=== PATIENT | female | born 2000 | race Caucasian/White ===

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

== ENCOUNTER 2023-01-19 13:34 | Inpatient (IN) | payer OTHER ==
[2023-01-19] MEDS ORDERED: CARBOPROST TROMETHAMINE 250 MCG/ML 1 ML AMP IM PRN (14:25)
[2023-01-19] MEDS ORDERED: miSOPROStoL 200 MCG TAB PO PRN (14:25)
[2023-01-19] MEDS ORDERED: LIDOCAINE 0.5% (PF) 5 MG/ML (50 ML SDV) SQ PRN (14:25)
[2023-01-19] MEDS ORDERED: OXYTOCIN 10 UNIT/ML 1 ML VIAL IM PRN (14:25)
[2023-01-19] MEDS ORDERED: TRANEXAMIC 1,000 MG/100ML-NACL 1,000 MG in EMPTY BAG 1 BAG IV PRN (14:25)
[2023-01-19] MEDS ORDERED: METHYLERGONOVINE 0.2 MG/ML 1 ML AMP IM PRN (14:25)
[2023-01-19] MEDS ORDERED: TERBUTALINE 1 MG/ML VIAL SQ PRN (14:25)
[2023-01-19] MEDS ORDERED: BENZOCAINE/MENTHOL SPRAY 1 GM/SPRAY AEROSOL TOPICAL PRN (14:26)
[2023-01-19] MEDS ORDERED: HYDROCORTISONE 2.5% RECTAL CREAM 30 GM TUBE RECTAL PRN (14:26)
[2023-01-19] MEDS ORDERED: diphenhydrAMINE 50 MG/ML 1 ML VIAL IVP PRN ×2 (14:26)
[2023-01-19] MEDS ORDERED: ACETAMINOPHEN TAB 325 MG TAB PO PRN (14:26)
[2023-01-19] MEDS ORDERED: SIMETHICONE 80 MG CHEWABLE PO PRN (14:26)
[2023-01-19] MEDS ORDERED: diphenhydrAMINE 25 MG CAP PO PRN (14:26)
[2023-01-19] MEDS ORDERED: ZOLPIDEM 5 MG TAB PO PRN (14:26)
[2023-01-19] MEDS ORDERED: LANOLIN CREAM 5 GM TUBE TOPICAL PRN (14:26)
[2023-01-19] MEDS ORDERED: diphenhydrAMINE 50 MG CAP PO PRN (14:26)
[2023-01-19] MEDS ORDERED: LACTATED RINGERS 1,000 ML IV SCH (14:30)
[2023-01-19] MEDS: IBUPROFEN 600 MG TAB PO PRN ×2 (14:54→23:59)
[2023-01-19] MEDS ORDERED: OXYTOCIN 30 UNITS/500 ML NS 30 UNIT in SALINE 1 500ML.BAG IV SCH (15:00)
[2023-01-19 16:23] LABS: Amphetamine Screen,Urine Not Detected (NotDetected); Barbiturate Screen,Urine Not Detected (NotDetected); Benzodiazepines Screen,Urine Not Detected (NotDetected); Cocaine Screen,Urine Not Detected (NotDetected); Methadone Screen, Urine Not Detected (NotDetected); Opiate Screen,Urine Not Detected (NotDetected); Oxycodone Screen, Urine Not Detected (NotDetected); Phencyclidine Screen,Urine Not Detected (NotDetected); Tricyclic Antidepressant,Urine Not Detected (NotDetected); Urn Cannabinoid Scrn Detected (NotDetected)
--- NOTE | 2023-01-19 17:45 | P.HPOB ---
History of Present Illness H&P Date: 01/19/23 Chief Complaint: Contractions, 1 visit Please note this H&P was dictated after delivery. Patient presented to labor and delivery completely dilated and precipitously delivered. Please see separate dictated delivery note. This patient is a 22-year-old 2 para 1 female estimated date of confinement 02/14/2023 estimated gestational age 36-2/7 weeks who presented to labor and delivery with complaints of contractions and is found to be completely dilated on admission. Patient's care is per Dr. Walker. Patient's had 2 visits at 12 and 19 weeks. She's had no other visits due to cortical "transportation issues". care is complicated by positive chlamydial culture that was treated however her partner has never been treated and they have continued to have intercourse throughout the . Patient also has a history of delivery at 36 weeks with her first was referred to maternal- medicine but did not go. is further complicated by marijuana use. Patient now presents in active labor Review of Systems Genitourinary: Reports Menstruation: Reports amenorrhea Past Medical History Additional Past Medical History / Comment(s): fractured wrist; previous delivery at 36-1/2 weeks gestation. History of Any Multi-Drug Resistant Organisms: None Reported Past Surgical History: No Surgical Hx Reported Past Anesthesia/Blood Transfusion Reactions: No Reported Reaction Smoking Status: Vaper - Past Family History Mother Family Medical History: No Reported History Medications and Allergies Allergies Allergy/AdvReac Type Severity Reaction Status Date / Time No Known Allergies Allergy Verified 01/19/23 14:24 Exam Vital Signs Temp Pulse Resp BP Pulse Ox 01/19/23 16:23 97 F L 75 18 130/85 01/19/23 16:15 96.9 F L 73 18 138/77 99 01/19/23 15:53 71 18 133/90 01/19/23 15:23 81 16 131/84 01/19/23 15:08 74 18 135/89 01/19/23 14:53 70 18 139/93 01/19/23 14:38 70 18 140/90 01/19/23 14:23 96.9 F L 73 18 135/84 01/19/23 14:00 96.9 F L 73 18 138/77 99 Intake and Output 01/19/23 01/19/23 01/19/23 06:59 14:59 22:59 Intake Total 172.567 Output Total 100 295 Balance 72.567 -295 Intake: Intake, IV Titration 172.567 Amount Oxytocin 30 Units/500 ml 172.567 Ns 30 unit In Saline 1 500ml.bag @ Per Protocol IV .Q0M [facility] Rx#:[id number] Output: Urine 100 Estimated Blood Loss 100 Output, Quantitative 195 Blood Loss Other: Weight 58.967 kg - OBG Physical Exam Abdomen: bowel sounds normal, no diffuse tenderness, no bruit present, no guarding noted, no hepatomegaly, no splenomegaly, no mass Vulva: both: normal Vagina: normal moisture, no discharge Cervix: no lesion (Cervix is complete and +2 station), no discharge Uterus: enlarged Results Blood type is A positive. Patient has not done a Glucola or group B strep testing. Patient has not done an anatomy ultrasound. Abnormal Lab Results - Last 24 Hours (Table) 01/19/23 Range/Units 15:30 U Marijuana (THC) Screen Detected H (NotDetected) Assessment and Plan Assessment: This is a 22-year-old 2 para 1 female 36-2/7 weeks gestation admitted to labor and delivery in active labor. Patient precipitously delivered a viable male . Please see separate dictated delivery note. Plan is to send a ur ine culture for chlamydia due to history of positive infection and her partner has not been treated. human services worker will also be consulted. Otherwise will continue routine care. (1) 36 weeks gestation of Current Visit: Yes Status: Acute Code(s): Z3A.36 - 36 WEEKS GESTATION OF SNOMED Code(s): 02391194 (2) Active labor Current Visit: Yes Status: Acute Code(s): IWG1417 - SNOMED Code(s): 078923751 (3) Limited care Current Visit: Yes Status: Acute Code(s): O09.30 - SUPRVSN OF PREG W INSUFFICIENT ANTENAT CARE, UNSP TRIMESTER SNOMED Code(s): 783538225 (4) Substance abuse Current Visit: Yes Status: Acute Code(s): F19.10 - OTHER PSYCHOACTIVE SUBSTANCE ABUSE, UNCOMPLICATED SNOMED Code(s): 06848382
--- NOTE | 2023-01-19 17:47 | P.PROBDLV ---
Vaginal Delivery Note - . Vaginal Delivery Note: Normal spontaneous vaginal delivery viable male infant Apgars 9 and 9 delivery time is 1411 hrs. Please see dictated H&P for intimate details of this patient's admission. Brief summary this is a 22-year-old 2 para 1 female 36-2/7 weeks gestation admitted in triage for complaints of contractions found to be completely dilated and pushing. She has a IV placed and is immediately taken to the birthing suite. Limited heart tones are obtained but appeared to be normal. Patient is quite out of control but at this time is encouraged to push. The posterior perineum is supported we have controlled delivery of infant's head over the intact perineum. Mouth and nares are bulb suctioned. There is no evidence of a nuchal cord. Patient continues to push uncontrollably and delivers the anterior and posterior shoulder and rest this infant's body. This is a vigorous viable male infant Apgars are 9 and 9 delivery time is 1411 hrs. has spontaneous respiration and good cry and grossly appears normal. After delivery of the the umbilical cord is doubly clamped and cut. The placenta is then spontaneously delivered intact. Inspection of the perineum shows bilateral periurethral lacerations which did not require suture. Estimated blood loss is approximately 100 mL. There are no complications. All counts are correct 3. Infant and mother stable delivery room however the order fulfillment specialist be alerted to patient's status.
[2023-01-19 18:57] LABS: Basophils % (A) 0 %; Eosinophils # (A) 0.1 k/uL (0-0.7); Eosinophils % (A) 1 %; HCT 38.9 % (34.0-46.0); HGB 12.9 gm/dL (11.4-16.0); Lymphocytes # (A) 1.8 k/uL (1.0-4.8); Lymphocytes % (A) 12 %; MCH 27.5 pg (25.0-35.0); MCHC 33.1 g/dL (31.0-37.0); Mean Platelet Volume 9.5; Monocytes # (A) 0.8 k/uL (0-1.0); Monocytes % (A) 5 %; Neutrophils # (A) 12.4 k/uL (1.3-7.7); Neutrophils % (A) 81 %; Platelet Count 295 k/uL (150-450); RBC 4.68 m/uL (3.80-5.40); RDW 12.9 % (11.5-15.5); WBC 15.3 k/uL (4.0-11.0)
[2023-01-19] MEDS: SENNOSIDES-DOCUSATE SODIUM 1 EACH TAB PO SCH (20:14)
[2023-01-19 21:04] VITALS: RESP 16
[2023-01-20 08:10] LABS: Basophils % (A) 0 %; Eosinophils # (A) 0.1 k/uL (0-0.7); Eosinophils % (A) 1 %; HCT 34.7 % (34.0-46.0); HGB 11.8 gm/dL (11.4-16.0); Lymphocytes # (A) 1.7 k/uL (1.0-4.8); Lymphocytes % (A) 13 %; MCH 28.2 pg (25.0-35.0); Mean Platelet Volume 8.3; Monocytes # (A) 0.7 k/uL (0-1.0); Monocytes % (A) 5 %; Neutrophils # (A) 10.1 k/uL (1.3-7.7); Neutrophils % (A) 80 %; Platelet Count 241 k/uL (150-450); RBC 4.18 m/uL (3.80-5.40); WBC 12.7 k/uL (4.0-11.0)
[2023-01-20 08:13] VITALS: PULSE 58
[2023-01-20] MEDS: IBUPROFEN 600 MG TAB PO PRN ×2 (08:13→13:10)
[2023-01-20] MEDS: SENNOSIDES-DOCUSATE SODIUM 1 EACH TAB PO SCH (08:16)
--- NOTE | 2023-01-20 08:53 | P.PNOBGVD ---
Subjective - Subjective Principal diagnosis: Status post vaginal delivery day #1 Interval history: Patient doing well. Denies any complaints at this time. She is bottle feeding. Lochia has been decreasing. Patient reports: Reports appetite normal, Reports voiding normally, Reports pain well controlled, Reports ambulating normally : other (In level I nursery) Objective - Latest Vital Signs Latest vital signs: Vital Signs Temp Pulse Resp BP Pulse Ox 01/20/23 08:00 98.0 F 58 L 16 135/83 100 01/20/23 04:00 97.8 F 82 16 131/88 100 01/20/23 00:00 79 16 123/83 98 01/19/23 20:00 98.6 F 88 16 138/77 01/19/23 16:23 97 F L 75 18 130/85 01/19/23 16:15 96.9 F L 73 18 138/77 99 01/19/23 15:53 71 18 133/90 01/19/23 15:23 81 16 131/84 01/19/23 15:08 74 18 135/89 01/19/23 14:53 70 18 139/93 01/19/23 14:38 70 18 140/90 01/19/23 14:23 96.9 F L 73 18 135/84 01/19/23 14:00 96.9 F L 73 18 138/77 99 Intake and Output 01/19/23 01/20/23 01/20/23 22:59 06:59 14:59 Output Total 295 Balance -295 Output: Urine 100 Output, Quantitative 195 Blood Loss Other: # Voids 2 - Exam Extremities: Present: normal. Absent: tenderness Abdomen: Present: normal appearance, soft. Absent: distention, tenderness Uterus: Present: normal, firm. Absent: tenderness - Labs Labs: Abnormal Lab Results - Last 24 Hours (Table) 01/19/23 01/19/23 01/20/23 Range/Units 14:00 15:30 07:43 WBC 15.3 H 12.7 H (4.0-11.0) k/uL Neutrophils # 12.4 H 10.1 H (1.3-7.7) k/uL U Marijuana (THC) Screen Detected H (NotDetected) Assessment and Plan Assessment: Status post vaginal delivery day #1 Plan: Continue with care today. Anticipate discharge home tomorrow.
[2023-01-20 13:18] VITALS: BP 126/73; TEMP 98.7
[2023-01-20 14:02] LABS: C. trachomatis,PCR Negative (Negative)
[2023-01-20] MEDS ORDERED: METOCLOPRAMIDE 10 MG TAB PO PRN (16:50)
--- NOTE | 2023-01-23 06:51 | P.MSEPDOC ---
Presenting Problems - Arrival Data Date of Arrival on Unit: 01/19/23 Time of Arrival on Unit: 13:35 Mode of Transport: Wheelchair - Complaint OB-Reason for Admission/Chief Complaint: Rule Out SROM Comment: Pt presents to triage with c/o sharp tightening pelvic pain 8/10 starting at 1000 today and worsening at 1100. States fluid leaking since 1230 today. Medical History - Information : 2 Para: 1 Term: 0 : 1 Abortions: Spontaneous or Elective: 0 Number of Living Children: 1 - Gestational Age Gestational Age by CASSIA (wks/days): 39 Weeks and 1 Days - History Complications: Other Comment: Limited care, history of chlamydia during Review of Systems - Review of Systems Constitutional: No problems Breast: No problems ENT: No problems Cardiovascular: No problems Respiratory: No problems Gastrointestinal: No problems Genitourinary: No problems Musculoskeletal: No problems Neurological: No problems Skin: No problems Vital Signs - Temperature Temperature: 98.7 F Temperature Source: Oral - Pulse Right Pulse Rate: 58 Pulse Assessment Method: Automatic Cuff - Respirations Respiratory Rate: 16 Oxygen Delivery Method: Room Air - Blood Pressure Right Arm Blood Pressure: 126/73 Blood Pressure Mean: 90 Blood Pressure Source: Automatic Cuff Medical Screen Scoring - Cervical Exam Dilation (cm): 10 Effacement (%): 100 Station: 0 Membranes: Ruptured - Uterine Contractions Frequency From (mins): 2 Frequency To (mins): 3 Duration From (seconds): 30 Duration To (seconds): 40 Intensity: Moderate Resting: Soft to palpation - Assessment - Baby A Baseline FHR: 130 Heart Rate - NICHD Category: Category II (Indeterminate) NST: Non-reactive Physician Notification - Physician Notified Physician Notified Date: 01/19/23 Physician Notified Time: 14:04 Physician: Rodrigo Sahu - Notification Comment Comment: Presense requested for imminent delivery Maternal Triage Index - Maternal Triage Index Presenting for scheduled procedure w/no complaint: No - Stat/Priority 1 Stat Priority 1: No - Urgent/Priority 2 Urgent Priority 2: No - Prompt/Priority 3 Prompt Priority 3: Yes Criteria Met for Priority 3: Pt ozzie 2-3 minutes apart for 30-40 seconds. SROM at 1230 today, cervical exam 10100/0 Disposition - Disposition OB Disposition: Admit, LDRP Suite Discharge Date: 01/20/23 Discharge Time: 15:27 I agree with the RN Medical Screening Exam: Yes Case reviewed; plan agreed upon as documented in EMR&OBIX.: Yes Diagnosis: LABOR THIRD TRI W DELIVERY THIRD TRI, UNSP
== END 2023-01-20 16:00 | disposition home or self-care (01) | DRG 560 ==
LOC: FBPOP 13:34 → 4FBP 14:04
PROVIDERS: ADMIT Obstetrics & Gynecology; ATTEND Obstetrics & Gynecology
PROC: 10E0XZZ Delivery of Products of Conception, External Approach (ICD-10-PCS; principal; 2023-01-19)
DX: O60.14X0 Preterm labor third trimester with preterm delivery third trimester, not applicable or unspecified (principal); O62.3 Precipitate labor; O71.82 Other specified trauma to perineum and vulva; Z37.0 Single live birth; Z3A.36 36 weeks gestation of pregnancy; F12.10 Cannabis abuse, uncomplicated; O99.324 Drug use complicating childbirth; O99.334 Smoking (tobacco) complicating childbirth; F17.290 Nicotine dependence, other tobacco product, uncomplicated; Z28.310 Unvaccinated for COVID-19
CPT/HCPCS: 59025; 80306; 84112; 85025; 86850; 86900; 86901; 87491; 88307; 99213

== ENCOUNTER 2024-01-29 05:00 | Inpatient (IN) | payer OTHER ==
[2024-01-29] MEDS: OXYTOCIN 10 UNIT/ML 1 ML VIAL IM PRN (05:30)
[2024-01-29] MEDS: LIDOCAINE 0.5% (PF) 5 MG/ML (50 ML SDV) SQ PRN (05:35)
[2024-01-29] MEDS ORDERED: ACETAMINOPHEN TAB 325 MG TAB PO PRN (05:54)
[2024-01-29] MEDS ORDERED: LANOLIN CREAM 1 GM TUBE TOPICAL PRN (05:54)
[2024-01-29] MEDS ORDERED: HYDROCORTISONE 2.5% RECTAL CREAM 30 GM TUBE RECTAL PRN (05:54)
[2024-01-29] MEDS ORDERED: diphenhydrAMINE 25 MG CAP PO PRN (05:54)
[2024-01-29] MEDS ORDERED: ZOLPIDEM 5 MG TAB PO PRN (05:54)
[2024-01-29] MEDS ORDERED: diphenhydrAMINE 50 MG/ML 1 ML VIAL IVP PRN ×2 (05:54)
[2024-01-29] MEDS ORDERED: SIMETHICONE 80 MG CHEWABLE PO PRN (05:54)
[2024-01-29] MEDS ORDERED: BENZOCAINE/MENTHOL SPRAY 1 GM/SPRAY AEROSOL TOPICAL PRN (05:54)
[2024-01-29] MEDS ORDERED: diphenhydrAMINE 50 MG CAP PO PRN (05:54)
--- NOTE | 2024-01-29 05:54 | P.HPOB ---
History of Present Illness H&P Date: 01/29/24 Chief Complaint: Vaginal delivery 23-year-old G3, P3 that presents to labor delivery status post vaginal delivery at the [facility]. Patient has not received care during this . Patient states she began ozzie around midnight 1 AM, water break broke around 4 they started to head into the hospital and had the baby just prior. Placenta delivered while she was in the labor and delivery room. Vaginal bleeding is moderate, second-degree vaginal laceration is appreciated upon inspection Review of Systems Constitutional: Denies chills, Denies fatigue, Denies fever Ears, nose, mouth and throat: Denies headache Cardiovascular: Denies leg edema Respiratory: Denies dyspnea Genitourinary: Reports Past Medical History Additional Past Medical History / Comment(s): fractured wrist; previous delivery at 36-1/2 weeks gestation. History of Any Multi-Drug Resistant Organisms: None Reported Past Surgical History: No Surgical Hx Reported Past Anesthesia/Blood Transfusion Reactions: No Reported Reaction Smoking Status: Vaper - Past Family History Mother Family Medical History: No Reported History Medications and Allergies Home Medications Medication Instructions Recorded Confirmed Type Ibuprofen [Motrin] 600 mg PO Q6HR PRN #60 tab 01/20/23 Rx Allergies Allergy/AdvReac Type Severity Reaction Status Date / Time No Known Allergies Allergy Verified 01/19/23 14:24 Exam Osteopathic Statement: *. No significant issues noted on an osteopathic structural exam other than those noted in the History and Physical/Consult. Targeted physical exam is performed this date in general this is a well- nourished well-developed female status postnormal spontaneous vaginal delivery, on inspection of the patient's vaginal vault second-degree midline laceration with extension into the left labia is appreciated. Laceration area is injected with lidocaine. It is repaired in the usual fashion with 3-0 Rapide. Hemostasis was noted after closure. Uterus is firm and below the umbilicus. Assessment and Plan (1) Term Current Visit: Yes Status: Acute Code(s): Z34.90 - ENCNTR FOR SUPRVSN OF NORMAL , UNSP, UNSP TRIMESTER SNOMED Code(s): 27370952 (2) Normal spontaneous vaginal delivery Current Visit: Yes Status: Acute Code(s): O80 - ENCOUNTER FOR FULL-TERM UNCOMPLICATED DELIVERY SNOMED Code(s): 26578484 (3) Obstetrical laceration Current Visit: Yes Status: Acute Code(s): O71.9 - OBSTETRIC TRAUMA, UNSPECIFIED SNOMED Code(s): 617656100 Plan: 23-year-old status post normal spontaneous vaginal delivery outside the hospital. Patient delivered the placenta while in the labor and delivery room. Laceration was repaired upon my arrival We will begin routine care
[2024-01-29] MEDS: IBUPROFEN 600 MG TAB PO SCH (06:34)
[2024-01-29 07:18] LABS: Basophils % (A) 0 %; Eosinophils # (A) 0.1 k/uL (0-0.7); Eosinophils % (A) 1 %; HCT 36.1 % (34.0-46.0); HGB 11.9 gm/dL (11.4-16.0); Lymphocytes # (A) 1.5 k/uL (1.0-4.8); Lymphocytes % (A) 14 %; MCH 26.7 pg (25.0-35.0); MCHC 33.1 g/dL (31.0-37.0); MCV 80.6 fL (80.0-100.0); Mean Platelet Volume 8.1; Monocytes # (A) 0.6 k/uL (0-1.0); Monocytes % (A) 6 %; Neutrophils # (A) 8.2 k/uL (1.3-7.7); Neutrophils % (A) 78 %; Platelet Count 274 k/uL (150-450); RBC 4.47 m/uL (3.80-5.40); RDW 13.9 % (11.5-15.5); WBC 10.5 k/uL (3.8-10.6)
[2024-01-29] MEDS: SENNOSIDES-DOCUSATE SODIUM 1 EACH TAB PO SCH (17:10)
[2024-01-29 20:54] LABS: Amphetamine Screen,Urine Not Detected (NotDetected); Barbiturate Screen,Urine Not Detected (NotDetected); Benzodiazepines Screen,Urine Not Detected (NotDetected); Cocaine Screen,Urine Not Detected (NotDetected); Methadone Screen, Urine Not Detected (NotDetected); Opiate Screen,Urine Not Detected (NotDetected); Oxycodone Screen, Urine Not Detected (NotDetected); Phencyclidine Screen,Urine Not Detected (NotDetected); Tricyclic Antidepressant,Urine Not Detected (NotDetected); Urn Cannabinoid Scrn Detected (NotDetected)
[2024-01-29] MEDS: IBUPROFEN 600 MG TAB PO PRN (23:54)
[2024-01-30 08:02] VITALS: BP 116/77; PULSE 61; RESP 16; TEMP 97.6
--- NOTE | 2024-01-30 08:47 | P.DS ---
Providers Date of admission: 01/29/24 05:00 Expected date of discharge: 01/30/24 Attending physician: Azul Dan Primary care physician: Stated None - Discharge Diagnosis(es) (1) Term Current Visit: Yes Status: Acute (2) Normal spontaneous vaginal delivery Current Visit: Yes Status: Acute (3) Obstetrical laceration Current Visit: Yes Status: Acute Hospital Course: 23-year-old 3 now para 3 that presented yesterday morning after delivering en route to the hospital. Patient had 1 telephone visit with Lazara and 1 visit. Patient does have labs on her "portal". Patient has a prior history of 2 spontaneous vaginal deliveries, last delivery very similar presented to the hospital precipitously delivering. Patient also had 2 visits with her last . Patient has done well . She is ambulating and voiding without difficulty. She is tolerating a regular diet without nausea or vomiting. She states her pain is well-controlled. She denies concerns. Patient Condition at Discharge: Good Plan - Discharge Summary New Discharge Prescriptions: No Action Vit No.179/Iron/Folic [ Tablet] 1 tablet PO DAILY Discharge Medication List Vit No.179/Iron/Folic [ Tablet] 1 tablet PO DAILY 01/29/24 [History] Patient Instructions/Handouts: Vaginal Delivery (GEN), Vaginal Delivery (DC) Activity/Diet/Wound Care/Special Instructions: No tub baths or intercourse until 6 weeks . Patient is to follow-up for routine care with Lazara and she established care there. Discharge Disposition: HOME SELF-CARE
[2024-01-30] MEDS: MEASLES-MUMPS-RUBELLA VACC/PF 12,500 UNIT/0.5 ML VIAL SQ ONE (16:53)
== END 2024-01-30 17:01 | disposition home or self-care (01) | DRG 548 ==
LOC: 4FBP 05:00
PROVIDERS: ADMIT Obstetrics & Gynecology Obstetrics; ATTEND Obstetrics & Gynecology Obstetrics
PROC: 0KQM0ZZ Repair Perineum Muscle, Open Approach (ICD-10-PCS; principal; 2024-01-29)
DX: Z39.0 Encounter for care and examination of mother immediately after delivery (principal); O60.14X0 Preterm labor third trimester with preterm delivery third trimester, not applicable or unspecified; Z3A.36 36 weeks gestation of pregnancy; Z37.0 Single live birth
CPT/HCPCS: 80306; 85025; 86850; 86900; 86901; 90707